=== PATIENT | female | born 1950 | race Caucasian/White ===

== ENCOUNTER 2020-02-10 11:28 | Inpatient (IN) | payer MEDICARE, BC ==
[~2020-02-10] VITALS: Ht 152.4 cm; Wt 59.0 kg
--- NOTE | 2020-02-10 12:15 | NUR ---
AARON TO ER BED 12. AAOX4. NOT IN RESP DISTRESS. AMBULATES WITH AN ELECTRIC WHEELCHAIR. CAME IN FOR HEAD AND NECK PAIN S/P GLF. PER PT SHE WAS GOING DOWN THE RAMP, WHEEL GOT STUCK AND FELL. PT REPORTS HITTING HER HEAD BUT DENIES KO. NECK ROM LIMITED D/T PAIN. PT PLACED ON SOFT CERVICAL COLLAR. WAS AT THE BEDSIDE FOR EVAL. ORDERS RECEIVED, NOTED AND CARREID OUT
--- NOTE | 2020-02-10 12:20 | NUR ---
PT REPORTS THAT SHE IS TAKING XARELTO AT HOME. LAST TAKEN LAST NIGHT.
--- NOTE | 2020-02-10 12:52 | NUR ---
DR. PERLA AT BEDSIDE
--- NOTE | 2020-02-10 12:59 | NUR ---
CALLED DR RINCON FOR PEER TO PEER. HE ASKED FOR IMAGES AND WILL CALL BACK
[2020-02-10 13:00] LABS: BASOPHILS # (AUTO) 0.1 /CMM (0.0-0.2); BASOPHILS % (AUTO) 0.9 % (0.0-2.0); EOSINOPHILS % (AUTO) 2.3 % (0.0-6.0); HEMATOCRIT 38 % (33-45); HEMOGLOBIN 12.6 g/dL (11.5-14.8); LYMPHOCYTES # (AUTO) 2.7 /CMM (0.8-4.8); LYMPHOCYTES % (AUTO) 26.8 % (20.0-44.0); MEAN CORPUSCULAR HGB CONC 33 g/dl (31.0-36.0); MEAN CORPUSCULAR VOLUME 84 fL (82-100); MONOCYTES # (AUTO) 0.8 /CMM (0.1-1.30); MONOCYTES % (AUTO) 7.9 % (2.0-12.0); NEUTROPHILS # (AUTO) 6.2 /CMM (1.8-8.9); NEUTROPHILS % (AUTO) 62.1 % (43.0-81.0); PLATELET COUNT (AUTO) 305 /CMM (150-450); RED BLOOD CELL COUNT(AUTO) 4.52 MIL/uL (4.0-5.2)
[2020-02-10] MEDS ORDERED: MULT-1215 PO (13:05)
[2020-02-10] MEDS ORDERED: TRIA80OI TP (13:05)
[2020-02-10] MEDS ORDERED: RIVA10TA PO (13:05)
[2020-02-10] MEDS ORDERED: CYAN-51 PO (13:05)
[2020-02-10] MEDS ORDERED: FURO-144 PO (13:05)
[2020-02-10] MEDS ORDERED: MAGN400T26 PO (13:05)
[2020-02-10] MEDS ORDERED: FERR325T23 PO (13:05)
[2020-02-10] MEDS ORDERED: HYDR30CR99 RC (13:05)
[2020-02-10] MEDS ORDERED: SOLI5TAB2 PO (13:05)
[2020-02-10] MEDS ORDERED: ATOR10TA PO (13:05)
[2020-02-10] MEDS ORDERED: AMIO200T4 PO (13:05)
[2020-02-10] MEDS ORDERED: PILO5TAB10 PO (13:05)
[2020-02-10] MEDS ORDERED: LETR2.5T PO (13:05)
[2020-02-10] MEDS ORDERED: METO25TA20 PO (13:05)
[2020-02-10] MEDS ORDERED: NORT25CA PO (13:05)
--- NOTE | 2020-02-10 13:21 | NUR ---
DR RINCON ON PHONE WITH TOÑITO SERNA
[2020-02-10 13:57] LABS: CALCIUM, SERUM 9.9 mg/dL (8.5-10.1); CREATININE 0.5 mg/dL (0.6-1.3); POTASSIUM 3.5 mmol/L (3.5-5.1)
[2020-02-10] MEDS ORDERED: hydrALAZINE HCL IV 20 MG VIAL IV PRN (14:00)
[2020-02-10] MEDS ORDERED: BLOOD SUGAR DIAGNOSTIC 1 EACH STRIP IN SCH (18:00)
[2020-02-10] MEDS ORDERED: LABETALOL HCL IV 100MG VIAL IV PRN (19:30)
--- NOTE | 2020-02-10 19:35 | NUR ---
REPORT GIVEN TO NETTIE KNIGHT FOR BECKY.
--- NOTE | 2020-02-10 19:49 | NUR ---
PT TRANSPORTED TO UNIT ON HER ELECTRIC WHEELCHAIR WITH EMT AND RN AT BEDSIDE W/ ACLS PROTOCOL. PT PREFERRED TO BE MOVED ON HER WHEELCHAIR. NAD NOTED DUING TRANSPORT.
--- NOTE | 2020-02-10 19:50 | NUR ---
Received patient on personal electronic wheelchair escorted by ER staff. patient able to transport self on electronic wheelchair. Patient is a/o x 4 and able make needs known. Patient has history of polio in which she is not able to move lower extremities. Patient able to move upper extremities well. NIHSS stroke scale performed. Pupils round and reactive. patient has no deficits noted. Patient has right forearm 20g iv that is clean dry intact and patent with saline flush. bed in low lock position with rials up x 2. call light within reach and all safety measure ensured and carried out. will continue to monitor.
[2020-02-10 21:00] VITALS: BP 147/58
[2020-02-10 22:00] VITALS: BP 147/70
[2020-02-10] MEDS: BLOOD SUGAR DIAGNOSTIC 1 EACH STRIP IN SCH (22:54)
[2020-02-10 23:00] VITALS: BP 145/89
[2020-02-11] VITALS (25 sets, daily range): BP systolic 98–147; BP diastolic 27–76
--- NOTE | 2020-02-11 07:35 | NUR ---
RN OPENING NOTES Received patient in bed, A/Ox4, on room air, SPO2 is 97%, denies pain or discomfort, weakness of lower extremities noticed due paraplegia dx,IV line notes in R FA g20, saline lock, flushes well, dressing is intact. safety measures in place, call light in reach, bed alarm is on, bed is locked in lowest position, will cont to monitor
[2020-02-11] MEDS: BLOOD SUGAR DIAGNOSTIC 1 EACH STRIP IN SCH ×4 (08:11→21:31)
[2020-02-11] MEDS ORDERED: HYDROCORTISONE CR 30 GM TUBE RC PRN (09:30)
[2020-02-11] MEDS: AMIODARONE HCL 200 MG TABLET PO SCH (10:23)
[2020-02-11 10:52] LABS: CALCIUM, SERUM 9.8 mg/dL (8.5-10.1); CREATININE 0.6 mg/dL (0.6-1.3); MAGNESIUM 2.3 mg/dL (1.8-2.4); PHOSPHORUS 2.9 mg/dL (2.5-4.9); POTASSIUM 3.3 mmol/L (3.5-5.1)
[2020-02-11 11:20] LABS: THYROID STIMULATING HORMONE 0.215 uIU/mL (0.358-3.74); URIC ACID 3.5 mg/dL (2.6-7.2)
[2020-02-11] MEDS ORDERED: CLINDAMYCIN HCL 150 MG CAPSULE PO ONE (11:30)
[2020-02-11] MEDS: DIGOXIN 0.125 MG TABLET GT SCH (12:29)
[2020-02-11] MEDS ORDERED: DIGOXIN ELIX UDC 0.25 MG/5 ML UDC GT SCH (13:00)
--- NOTE | 2020-02-11 15:00 | NUR ---
Took patient to CT scan via bed
--- NOTE | 2020-02-11 15:20 | NUR ---
Back from CT scan, tolerated well, repositioned to comfortable position, connected to monitors, cont to monitor closely
--- NOTE | 2020-02-11 16:00 | NUR ---
Patient was seen by neurologist at bed site
[2020-02-11] MEDS ORDERED: PILOCARPINE HCL 5 MG TABLET PO SCH (17:00)
[2020-02-11] MEDS ORDERED: METOPROLOL TARTRATE 25 MG TABLET PO SCH (17:00)
[2020-02-11] MEDS: OXYBUTYNIN CHLORIDE 5 MG TABLET PO SCH (17:08)
[2020-02-11] MEDS: MAGNESIUM OXIDE 400 MG TABLET PO SCH (17:08)
[2020-02-11] MEDS: METOPROLOL TARTRATE 50 MG TABLET PO SCH (17:32)
--- NOTE | 2020-02-11 19:00 | NUR ---
Patient remains in no acute distress in bed. a/o x 4 and able to make needs known. Patient is on room air and tolerating well. patient is not c/o any sob, difficulty breathing or pain at this time. neuro checks performed q4h with no changes in mental status noted. IV is clean dry intact and patent with saline flush. bed in low lock position with rials up x 2. call light within reach and all safety measures ensured and carried out. will continue to monitor.
--- NOTE | 2020-02-11 19:27 | NUR ---
RN CLOSING NOTES Patient remains in bed, resting comfortably, medications given, comfort needs attended, IV line flushed, safety measures implemented, call light in reach, will endorse to PM shift RN
[2020-02-11] MEDS ORDERED: NORTRIPTYLINE HCL 25 MG CAPSULE PO SCH (22:00)
[2020-02-11] MEDS ORDERED: ATORVASTATIN 10 MG TABLET PO SCH (22:00)
[2020-02-12] VITALS (8 sets, daily range): BP systolic 111–130; BP diastolic 52–73
--- NOTE | 2020-02-12 | NUR ---
patient remains stable with blood pressure wnl and no episodes of hypertension noted. will continue to monitor blood pressure and neuro status.
[2020-02-12 04:49] LABS: CALCIUM, SERUM 10.1 mg/dL (8.5-10.1); CREATININE 0.5 mg/dL (0.6-1.3); MAGNESIUM 2.2 mg/dL (1.8-2.4); POTASSIUM 3.7 mmol/L (3.5-5.1)
--- NOTE | 2020-02-12 08:00 | NUR ---
patient remains in no acute distress with no change in condition during shift. all needs met, all orders carried out. will endorse care to am RN for continuity of care.
[2020-02-12] MEDS: MAGNESIUM OXIDE 400 MG TABLET PO SCH (08:33)
[2020-02-12] MEDS: OXYBUTYNIN CHLORIDE 5 MG TABLET PO SCH (08:33)
[2020-02-12] MEDS: METOPROLOL TARTRATE 50 MG TABLET PO SCH (08:35)
[2020-02-12] MEDS: AMIODARONE HCL 200 MG TABLET PO SCH (08:35)
[2020-02-12] MEDS: BLOOD SUGAR DIAGNOSTIC 1 EACH STRIP IN SCH (08:38)
[2020-02-12] MEDS ORDERED: MULTIVITAMIN PO SCH (09:00)
[2020-02-12] MEDS ORDERED: LETROZOLE 2.5 MG TABLET PO SCH (09:00)
[2020-02-12] MEDS ORDERED: MULTIVIT W/MINERALS 1 TAB TABLET PO SCH (09:00)
[2020-02-12] MEDS ORDERED: FERROUS SULFATE (325 MG) 325 MG/TAB TABLET PO SCH (09:00)
[2020-02-12] MEDS ORDERED: FUROSEMIDE 40 MG TABLET PO SCH (09:00)
[2020-02-12] MEDS ORDERED: CYANOCOBALAMIN 500 MCG TABLET PO SCH (09:00)
[2020-02-12] MEDS ORDERED: IRON PO SCH (09:00)
[2020-02-12] MEDS ORDERED: [UNRECOGNIZED DRUG - OTHER] PO SCH (09:00)
[2020-02-12] MEDS ORDERED: FOLIC ACID PO SCH (09:00)
[2020-02-12] MEDS: DIGOXIN 0.125 MG TABLET GT SCH (13:00)
--- NOTE | 2020-02-12 13:30 | NUR ---
discharge note received DC orders from gerhard Mcmanus NP w/ Dr. Klein for DC. Patient remains A/Ox4, denies headache, dizziness, N/V. 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 temp 98.2 , BP 109/48 on left arm, 100% SPO2 on RA, even and unlabored respirations, HR sinus jonathan 57. patient has belongings, checklist signed, no wound care pictures to be taken, DC teaching completed, emergency symptoms reiterated. escorted patient to lobby and met there to take patient home
== END 2020-02-12 17:46 | disposition home or self-care (01) | DRG 86 ==
LOC: ER 11:35 → ICU 18:47
PROVIDERS: ADMIT Internal Medicine; ATTEND Nurse Practitioner Acute Care
DX: S06.6X0A Traumatic subarachnoid hemorrhage without loss of consciousness, initial encounter (principal); I48.20 Chronic atrial fibrillation, unspecified; D68.69 Other thrombophilia; E22.2 Syndrome of inappropriate secretion of antidiuretic hormone; E27.40 Unspecified adrenocortical insufficiency; G82.20 Paraplegia, unspecified; S06.5X0A Traumatic subdural hemorrhage without loss of consciousness, initial encounter; Z99.3 Dependence on wheelchair; W05.0XXA Fall from non-moving wheelchair, initial encounter; Z85.3 Personal history of malignant neoplasm of breast; Y93.9 Activity, unspecified; Y92.89 Other specified places as the place of occurrence of the external cause; R40.2362 Coma scale, best motor response, obeys commands, at arrival to emergency department; R40.2142 Coma scale, eyes open, spontaneous, at arrival to emergency department; R40.2252 Coma scale, best verbal response, oriented, at arrival to emergency department; E78.5 Hyperlipidemia, unspecified; Z79.01 Long term (current) use of anticoagulants; Z86.12 Personal history of poliomyelitis; I10 Essential (primary) hypertension; R32 Unspecified urinary incontinence
CPT/HCPCS: 36415; 70450-TC; 71045-TC; 72125-TC; 80048-TC; 82533; 82962-TC; 83735-TC; 84100-TC; 84439-TC; 84443-TC; 84550-TC; 85025-TC; 85610-TC; 85730-TC; 86850-TC; 87081-TC; 92526; 92611-TC; 93307-TC; 97112-TC; 97530-TC; G0378; J3490

== ENCOUNTER 2020-09-03 09:50 | Outpatient (CLI) | payer MEDICARE, BC ==
[~2020-09-03 09:50] MED LIST: AMIO200T5 PO; ATOR10TA PO; CYAN-51 PO; FERR325T23 PO; FURO-144 PO; HYDR30CR99 RC; LETR2.5T PO; MAGN400T26 PO; METO25TA20 PO; MULT-1215 PO; NORT25CA PO; PILO5TAB10 PO; RIVA10TA PO; SOLI5TAB2 PO; TRIA80OI TP
[2020-09-03] MEDS ORDERED: HYDROCORTISONE 1% CREAM 28.35 GM TUBE TP ONE (10:28)
[2020-09-03] MEDS ORDERED: Z GUARD REMEDY 2 OZ OINT TP ONE (10:28)
== END 2020-09-03 23:59 | disposition home or self-care (01) ==
LOC: WOU 09:50
PROVIDERS: ATTEND Specialist
DX: L89.322 Pressure ulcer of left buttock, stage 2 (principal); B91 Sequelae of poliomyelitis; Z99.3 Dependence on wheelchair
CPT/HCPCS: G0463